=== PATIENT | female | born 1985 | race Caucasian/White ===

== ENCOUNTER → 2020-07-20 14:36 | Outpatient (BNVA) | payer OTHER, SELFPAY | PROVIDERS: PCP Internal Medicine; Visit Provider Surgery | DX: Z76.89 Persons encountering health services in other specified circumstances (principal) ==

== ENCOUNTER → 2020-07-21 08:12 | Outpatient (BNVA) | payer OTHER, SELFPAY | PROVIDERS: PCP Internal Medicine; Referring Provider Internal Medicine; Visit Provider Surgery | DX: E66.01 Morbid (severe) obesity due to excess calories (principal); Z68.41 Body mass index [BMI] 40.0-44.9, adult; Z71.3 Dietary counseling and surveillance | CPT/HCPCS: 99204 ==

== ENCOUNTER → 2020-08-02 12:10 | Outpatient (BNVA) | payer OTHER, SELFPAY | PROVIDERS: Visit Provider Dietitian, Registered | DX: Z76.89 Persons encountering health services in other specified circumstances (principal) ==

== ENCOUNTER 2020-08-04 10:53 | Outpatient (REF) | payer OTHER, SELFPAY ==
--- NOTE | 2020-08-04 12:29 | ECG_ITS ---
Test Reason : SOB PREOP Blood Pressure : / mmHG Vent. Rate : 078 BPM Atrial Rate : 078 BPM P-R Int : 142 ms QRS Dur : 086 ms QT Int : 412 ms P-R-T Axes : 033 032 015 degrees QTc Int : 469 ms Normal sinus rhythm Normal ECG No previous ECGs available Referred By: José Gautam Electronically Signed By:INES MCKNIGHT MD
--- NOTE | 2020-08-04 12:58 | XR_ITS ---
EXAMINATION: XR CHEST CLINICAL INFORMATION: Severe obesity due to excessive calories. COMPARISON: None TECHNIQUE: 2 views of the chest were obtained. FINDINGS: No significant abnormality is noted involving the heart, lungs, mediastinum, bony thorax or soft tissues. XR/XR chest 2V IMPRESSION: Unremarkable chest exam.
[2020-08-04 13:45] LABS: MANUAL DIFF FLAG NO
[2020-08-04 13:49] LABS: Basophils Percent Auto 0.4 % (0-2); Eosinophils Absolute Auto 0.3 X10*3/uL (0.0-0.4); Eosinophils Percent Auto 3.4 % (0-4); Hematocrit 36.9 % (37-47); Hemoglobin 11.6 g/dl (12.0-16.0); Imm Gran Abs Auto 0.02 X10*3/uL (0.00-0.03); Imm Gran Pct Auto 0.2 % (0.0-0.4); Lymphocytes Absolute Auto 1.9 X10*3/uL (1.2-4.9); Lymphocytes Percent Auto 23.1 % (20-40); Mean Corpuscular HGB Conc 31.4 g/dl (31.0-35.0); Mean Corpuscular Hemoglobin 25.1 pg (27.0-33.0); Mean Corpuscular Volume 79.7 fL (80-98); Mean Platelet Volume 10.2 fL (9.4-12.3); Monocytes Absolute Auto 0.4 X10*3/uL (0.1-1.2); Neutrophils Absolute Auto 5.7 X10*3/uL (2.0-8.3); Neutrophils Percent Auto 67.9 % (45-73); Platelet Count 361 X10*3/uL (160-400); Red Blood Count 4.63 X10*6/uL (4.20-5.50); Red Cell Distribution Width 14.8 % (11.0-16.0); White Blood Count 8.3 X10*3/uL (4.8-10.8)
[2020-08-04 14:21] LABS: Alanine Aminotransferase 29 U/L (0-31); Albumin Level 4.3 g/dL (3.5-5.0); Alkaline Phosphatase 86 U/L (39-117); Anion Gap 11 (12-20); Aspartate Amino Transferase 21 U/L (5-31); Bilirubin Total 0.4 mg/dL (0.0-1.0); Blood Urea Nitrogen 13 mg/dL (9-16); C Reactive Protein 1.45 mg/dL (< or = 0.50); Calcium 8.6 mg/dL (8.4-10.2); Carbon Dioxide 30 mmol/L (22-29); Chloride 102 mmol/L (96-108); Cholesterol 174 mg/dL; Estimated Glomerular Filt Rate > 60; Glucose Random 78 mg/dL (60-115); HDL Cholesterol 34 mg/dL; LDL Cholesterol Calculated 122 mg/dl; Potassium 3.6 mmol/l (3.3-5.1); Sodium 139 mmol/L (135-145); Total Protein 7.7 g/dL (6.5-8.0); Triglycerides 91 mg/dL
[2020-08-04 14:25] LABS: Estimated Average Glucose 114 mg/dL; Hemoglobin A1c % 5.6 %
[2020-08-04 14:42] LABS: Ferritin 23 ng/mL (10-122)
[2020-08-04 15:01] LABS: Vitamin B12 513 pg/mL (200-900)
[2020-08-05 12:01] LABS: H Pylori Breath Test NOT DETECTED (NOT DETECTED)
[2020-08-07 12:17] LABS: Insulin Level Total 10.1 uIU/mL
[2020-08-07 18:32] LABS: Zinc 92 mcg/dL (60-130)
[2020-08-09 18:56] LABS: Vitamin A 38 mcg/dL (38-98)
[2020-08-10 14:41] LABS: Vitamin B1 10 nmol/L (8-30)
== END 2020-08-04 10:54 | disposition home or self-care (01) ==
LOC: HO.LAB 10:53
PROVIDERS: Absent Provider Surgery; PCP Internal Medicine; Visit Provider Physician Assistant
DX: Z01.818 Encounter for other preprocedural examination (principal); E66.01 Morbid (severe) obesity due to excess calories
CPT/HCPCS: 36415; 71046; 80053; 80061; 82607; 82728; 82746; 83013; 83036; 83525; 84425; 84443; 84590; 84630; 85025; 86140; 93005; 99211

== ENCOUNTER 2020-08-14 09:15 | Outpatient (REF) | payer OTHER, SELFPAY ==
--- NOTE | 2020-08-14 09:18 | US_ITS ---
EXAMINATION: US COMPLETE ABDOMEN WITH LIVER ELASTOGRAPHY CLINICAL INFORMATION: Morbid obesity due to excess calories. COMPARISON: None. TECHNIQUE: Real-time imaging of the abdominal viscera. Noninvasive ultrasound liver fibrosis assessment is performed using Aldo ElastPQ point quantification shear wave elastography (pSWE) with a 5 MHz transducer. Multiple elastography samples are obtained. FINDINGS: PANCREAS: Normal. ABDOMINAL AORTA: The proximal, middle, and distal aortic segments are normal in caliber. INFERIOR VENA CAVA: Visualized portions are normal. LIVER: The liver demonstrates normal size and Contour with increased echogenicity. No focal lesion or intrahepatic biliary duct dilatation. The right lobe measures 15.7 cm in length. The left lobe measures 11.1 cm in length. There is hepatopedal flow of the main portal vein. Shear wave elastography provides a median stiffness of 1.44 m/s (reference: normal median stiffness is 0.81 - 1.22 m/s). The IQR/median stiffness to assess sampling precision is 0.19 (reference: optimal IQR/median stiffness is under 0.3). GALLBLADDER: Normal. The gallbladder is physiologically distended without evidence of stones, sludge, polyps, wall thickening or pericholecystic fluid. COMMON BILE DUCT: Normal in caliber measuring 0.3 cm in diameter. RIGHT KIDNEY: Normal. No hydronephrosis. No renal calculi or focal parenchymal lesions. The kidney measures 11.7 cm in maximum dimension. LEFT KIDNEY: Normal. No hydronephrosis. No renal calculi or focal parenchymal lesions. The kidney measures 12 cm in maximum dimension. SPLEEN: Normal. The spleen measures 10.3 cm in maximum dimension. FREE FLUID: None. US/US abdomen comp w elastography IMPRESSION: 1. Hepatic steatosis. 2. Elastography: Liver elastography measurements are consistent with a moderate risk for clinically significant liver fibrosis (METAVIR Stage F2-F3).
--- NOTE | 2020-08-14 10:02 | FL_ITS ---
EXAMINATION: XR FLUOROSCOPY UPPER GI WITH AIR CLINICAL INFORMATION: Morbid obesity due to excess calories. COMPARISON: None TECHNIQUE: Fluoroscopic assessment of the upper GI tract was performed in various upright and supine/prone obliquities utilizing thin and thick high density barium contrast material and effervescent granules. FINDINGS: The esophagus was normal in course, caliber, and contour. There was normal distensibility with no fixed segment of narrowing. No focal mucosal abnormality was identified. No significant esophageal dysmotility was observed. Contrast passed freely across the gastroesophageal junction into the stomach. No significant hiatal hernia. There was normal distensibility of the stomach with no focal abnormality identified. There was prompt gastric emptying into the duodenum which demonstrated a normal appearance. No gastroesophageal reflux was observed. FLUOROSCOPY TIME: 2.9 minutes DOSE AREA PRODUCT: 48.835 Gy-cm2 (rosales-centimeter squared) FL/FL upper GI series IMPRESSION: Normal upper GI examination.
== END 2020-08-14 09:16 | disposition home or self-care (01) ==
LOC: HO.US 09:15
PROVIDERS: Visit Provider Surgery
DX: Z01.818 Encounter for other preprocedural examination (principal); E66.01 Morbid (severe) obesity due to excess calories; K21.9 Gastro-esophageal reflux disease without esophagitis
CPT/HCPCS: 74240; 76700; 76705; 76981

== ENCOUNTER → 2020-08-30 08:42 | Outpatient (BNVA) | payer OTHER, SELFPAY | PROVIDERS: PCP Internal Medicine; Visit Provider Surgery | DX: Z76.89 Persons encountering health services in other specified circumstances (principal) ==

== ENCOUNTER → 2020-09-13 08:34 | Outpatient (BNVA) | payer OTHER, SELFPAY | PROVIDERS: PCP Family Medicine; Referring Provider Family Medicine; Visit Provider Dietitian, Registered | DX: Z76.89 Persons encountering health services in other specified circumstances (principal) ==

== ENCOUNTER → 2020-10-18 08:10 | Outpatient (BNVA) | payer OTHER, SELFPAY | PROVIDERS: PCP Family Medicine; Visit Provider Surgery ==

== ENCOUNTER → 2020-10-27 10:52 | Outpatient (BNVA) | payer OTHER, SELFPAY | PROVIDERS: PCP Family Medicine; Visit Provider Dietitian, Registered ==

== ENCOUNTER → 2020-11-08 08:29 | Outpatient (BNVA) | payer OTHER, SELFPAY | PROVIDERS: Visit Provider Surgery ==

== ENCOUNTER → 2020-11-15 12:30 | Outpatient (BNVA) | payer OTHER, SELFPAY | PROVIDERS: PCP Internal Medicine; Visit Provider Physician Assistant ==

== ENCOUNTER 2020-11-23 05:53 | Inpatient (IN) | payer OTHER, SELFPAY ==
--- NOTE | 2020-11-15 10:51 | HO.ANESPROP2 ---
Documented by User: Meena Clare 11/22/20 09:13 HPI - Anesthesia Eval Consult details Narrative: 35yo F for Gastrectomy Sleeve No h/o of GA. Pt reports tendency toward nausea. Pt concerned about PONV because vomited after spinal. Pending Labs T&S PMFSH Active Problems Active Problems: All Active Problems (Updated 11/08/20 @ 12:50 by José Gautam MD) BMI 37.0-37.9, adult (Acute) BMI 38.0-38.9,adult (Acute) Obesity (Acute) Anemia (Acute) Pre-op evaluation (Acute) Preprocedural examination (Acute) Anxiety (Acute) Depression (Acute) DJD (degenerative joint disease) (Acute) Asthma (Acute) Hypertension (Acute) Morbid obesity (Acute) Past Medical History Medical History Anemia Anxiety Asthma Depression DJD (degenerative joint disease) History of COVID-19 Hypertension Morbid obesity Obesity Family History Family History Mother No problems noted. Father No problems noted. Brother No problems noted. Brother No problems noted. Brother No problems noted. Sister No problems noted. Family history of problems with anesthesia: No Surgical History Surgical History Hx of section History of Problems with Anesthesia: No Social History Social History Are you a primary medication care manager to a significant other at home: No Do you presently have visiting nurse or other home services: No Alcohol intake: never Smoking Status: Never smoker Second Hand Smoke Exposure: No Use of substances other than those prescribed or required for medical reasons: No Have you been hit, kicked, punched, or otherwise hurt by someone within the past year? If so, by whom?: No [facility] Practices: pentacostal Advance Directives: No Advance Directives Information Provided: No Advance Directives on File: No Recently lost weight without trying: No Narrative Narrative: No recent illness. >4 mets with working. Asthma stable. Meds Allergies Allergy/AdvReac Type Severity Reaction Status Date / Time No Known Allergies Allergy Verified 11/08/20 13:06 Home Medications Medication Instructions Recorded Confirmed Last Taken Type aspirin 81 mg tablet,delayed 81 mg PO DAILY 07/21/20 11/15/20 10/17/20 History release chlorthalidone 25 mg tablet 25 mg PO DAILY 07/21/20 11/15/20 Unknown History cholecalciferol (vitamin D3) 50 50 mcg PO DAILY 07/21/20 11/15/20 11/05/20 History mcg (2,000 unit) capsule fluticasone propionate 110 1 puff INHALATION BID 07/21/20 11/15/20 Unknown History mcg/actuation HFA aerosol inhaler naproxen 375 mg tablet 375 mg PO BID PRN 07/21/20 11/15/20 11/05/20 History nifedipine 90 mg tablet,extended 90 mg PO DAILY 07/21/20 11/15/20 11/23/20 History release Exam Exam Date and Time: November 15, 2020 1051 Pertinent Lab Results Pertinent Lab Results: Laboratory Tests 11/15/20 11/15/20 11/15/20 12:20 12:20 12:20 WBC 6.4 Hgb 12.2 Hct 38.3 Plt Count 343 PT 14.7 H INR 1.2 H APTT 33.5 Sodium 138 Potassium 3.4 Chloride 96 Carbon Dioxide 28 BUN 11 Creatinine 0.82 Estimated GFR > 60 Hemoglobin A1c % Total Insulin Total Bilirubin 0.6 AST 45 H D ALT 48 H Alkaline Phosphatase 63 D C-Reactive Protein 1.10 H Total Protein 8.3 H Albumin 4.5 TSH 0.78 11/15/20 11/15/20 12:20 12:20 WBC Hgb Hct Plt Count PT INR APTT Sodium Potassium Chloride Carbon Dioxide BUN Creatinine Estimated GFR Hemoglobin A1c % 5.3 Total Insulin 5.7 Total Bilirubin AST ALT Alkaline Phosphatase C-Reactive Protein Total Protein Albumin TSH Narrative Narrative: EKG 07/2020 Normal sinus rhythm Normal ECG No previous ECGs available Airway Mallampati Class: II TM Dist: >3cm Neck ROM: Full Loose/Missing/Broken Teeth: No Heart: RRR Lungs: CTAB Assessment and Plan Assessment Anesthesia Assessment: Anesthesia Plan Discussed and PAT Visit Documented by User: Jean Solis 11/23/20 07:45 [facility] Past Medical History Medical History Anemia Anxiety Asthma Depression DJD (degenerative joint disease) History of COVID-19 Hypertension Morbid obesity Obesity Family History Family History Mother No problems noted. Father No problems noted. Brother No problems noted. Brother No problems noted. Brother No problems noted. Sister No problems noted. Surgical History Surgical History Hx of section Social History Social History Are you a primary medication care manager to a significant other at home: No Do you presently have visiting nurse or other home services: No Alcohol intake: never Smoking Status: Never smoker Second Hand Smoke Exposure: No Use of substances other than those prescribed or required for medical reasons: No Have you been hit, kicked, punched, or otherwise hurt by someone within the past year? If so, by whom?: No [facility] Practices: pentacostal Advance Directives: No Advance Directives Information Provided: No Advance Directives on File: No Recently lost weight without trying: No Meds Allergies Allergy/AdvReac Type Severity Reaction Status Date / Time No Known Allergies Allergy Verified 11/08/20 13:06 Home Medications Medication Instructions Recorded Confirmed Last Taken Type aspirin 81 mg tablet,delayed 81 mg PO DAILY 07/21/20 11/15/20 10/17/20 History release chlorthalidone 25 mg tablet 25 mg PO DAILY 07/21/20 11/15/20 Unknown History cholecalciferol (vitamin D3) 50 50 mcg PO DAILY 07/21/20 11/15/20 11/05/20 History mcg (2,000 unit) capsule fluticasone propionate 110 1 puff INHALATION BID 07/21/20 11/15/20 Unknown History mcg/actuation HFA aerosol inhaler naproxen 375 mg tablet 375 mg PO BID PRN 07/21/20 11/15/20 11/05/20 History nifedipine 90 mg tablet,extended 90 mg PO DAILY 07/21/20 11/15/20 11/23/20 History release Exam Airway Mallampati Class: II TM Dist: >3cm Neck ROM: Full Loose/Missing/Broken Teeth: No Heart: rrr+[id number] Lungs: cta b/l Assessment and Plan Assessment Anesthesia Assessment: Anesthesia Plan Discussed, PAT Visit and Chart Reviewed Final Anesthetic Review ASA Class: II Final Preanesthetic Review: No Changes in Pt Med Stat, Meds/Allgs Chart Reviewed, Consent Obtained/Reviewed and Anes Risks/Benef Reviewed Patient Risk: Low Procedure Risk: Low Assessment/Block/Sedation in SS: Assess/Block/Sedation-SS Anesthetic Plan Anesthetic Plan: GA and Agree w/ Assess. and Plan Disposition: Standard PACU
[2020-11-15 12:21] VITALS: BP 144/97; PULSE 99; RESP 20; O2SAT 98; BMI 36.6
[2020-11-15 12:51] LABS: MANUAL DIFF FLAG NO
[2020-11-15 13:05] LABS: Basophils Percent Auto 0.5 % (0-2); Eosinophils Absolute Auto 0.3 X10*3/uL (0.0-0.4); Eosinophils Percent Auto 5.3 % (0-4); Hematocrit 38.3 % (37-47); Hemoglobin 12.2 g/dl (12.0-16.0); Imm Gran Abs Auto 0.02 X10*3/uL (0.00-0.03); Imm Gran Pct Auto 0.3 % (0.0-0.4); Lymphocytes Absolute Auto 1.7 X10*3/uL (1.2-4.9); Lymphocytes Percent Auto 25.6 % (20-40); Mean Corpuscular HGB Conc 31.9 g/dl (31.0-35.0); Mean Corpuscular Hemoglobin 24.4 pg (27.0-33.0); Mean Corpuscular Volume 76.8 fL (80-98); Mean Platelet Volume 10.1 fL (9.4-12.3); Monocytes Absolute Auto 0.4 X10*3/uL (0.1-1.2); Monocytes Percent Auto 6.8 % (2-11); Neutrophils Percent Auto 61.5 % (45-73); Platelet Count 343 X10*3/uL (160-400); Red Blood Count 4.99 X10*6/uL (4.20-5.50); Red Cell Distribution Width 15.2 % (11.0-16.0); White Blood Count 6.4 X10*3/uL (4.8-10.8)
[2020-11-15 13:11] LABS: INTERNATIONAL NORM RATIO 1.2 (0.9-1.1); Prothrombin Time 14.7 SEC (10.8-13.0)
[2020-11-15 13:14] LABS: Partial Thromboplastin Time 33.5 SEC (24.1-38.0)
[2020-11-15 13:42] LABS: Alanine Aminotransferase 48 U/L (0-31); Albumin Level 4.5 g/dL (3.5-5.0); Alkaline Phosphatase 63 U/L (39-117); Anion Gap 17 (12-20); Aspartate Amino Transferase 45 U/L (5-31); Bilirubin Total 0.6 mg/dL (0.0-1.0); Blood Urea Nitrogen 11 mg/dL (9-16); Calcium 9.4 mg/dL (8.4-10.2); Carbon Dioxide 28 mmol/L (22-29); Chloride 96 mmol/L (96-108); Cholesterol 190 mg/dL; Creatinine Clr Calc Pharmacy 107.1; Estimated Glomerular Filt Rate > 60; Glucose Random 70 mg/dL (60-115); HDL Cholesterol 24 mg/dL; LDL Cholesterol Calculated 148 mg/dl; Potassium 3.4 mmol/L (3.3-5.1); Sodium 138 mmol/L (135-145); Total Protein 8.3 g/dL (6.5-8.0); Triglycerides 91 mg/dL
[2020-11-15 14:00] LABS: Estimated Average Glucose 105 mg/dL; Hemoglobin A1c % 5.3 %
[2020-11-15 14:09] LABS: TSH reflex Free T4 0.78 uIU/mL (0.32-4.0)
[2020-11-16 06:31] LABS: Insulin Level Total 5.7 uIU/mL
--- NOTE | 2020-11-22 23:45 | MHC.SHP ---
Pre-Procedural Eval Section A The patient is an INPATIENT: Yes The History & Physical has been completed within 30 days and I have reviewed it.: No Section B Chief Complaint: severe obesity Details of Present Illness: Obesity Relevant Family History (Specify if Yes): No Relevant Social History: None Present Medications: see Short Stay Collaborative assessment Medical History: No relevant PMH History of Previous Operations: No relevant previous surgery Allergies: Allergies Allergy/AdvReac Type Severity Reaction Status Date / Time No Known Allergies Allergy Verified 11/08/20 13:06 Review of Systems Sugical H&P ROS: Negative: Constitution, Cardiovascular, Respiratory, Neurological, Psychiatric, Hem-Onc, Allergic/Immunologic, Gastrointestinal, Genitourinary, Musculoskeletal, Integumentary, Endocrine and Eyes/Ears/Nose/Throat Exam Surgical H&P Exam: Normal: HEENT, Normal: Heart, Normal: Lungs, Normal: Extremities, Normal: Abdomen, Normal: Skin and Normal: Neurological Plan Diagnosis/Plan: Unchanged I have reviewed the history and physical and performed a pertinent physical examination on my patient. No changes have occurred unless specified.
[2020-11-23] VITALS (14 sets, daily range): BP systolic 124–159; BP diastolic 77–95; PULSE 84–108; RESP 14–20; TEMP 35.2–36.7; O2SAT 88–100
[2020-11-23 06:20] LABS: UPreg QC Valid YES; Urine Pregnancy NEGATIVE (NEGATIVE)
[2020-11-23 06:34] LABS: COVID-19 Test Negative (Negative)
[2020-11-23] MEDS: Scopolamine 1.5 MG PATCH.TD.3 TRANSDERMA (06:45)
[2020-11-23] MEDS: Lactated Ringers 1,000 ML 999 ML IVCONT (07:03)
[2020-11-23] MEDS: Lactated Ringers 1,000 ML 100 ML IVCONT (07:04)
--- NOTE | 2020-11-23 07:28 | PC.NURSE ---
dr pearce at bedside going over procedure pt verbalized understanding with interpretor
--- NOTE | 2020-11-23 10:33 | PM.DS ---
DS: Providers Provider Date of Service: 11/24/20 Date of admission: 11/23/20 05:53 Primary care physician: Imelda Angel MD DS: Medications Discharge Medications Home Medications: Home Medications Medication Instructions Recorded Confirmed aspirin 81 mg tablet,delayed 81 mg PO DAILY 07/21/20 11/15/20 release chlorthalidone 25 mg tablet 25 mg PO DAILY 07/21/20 11/15/20 cholecalciferol (vitamin D3) 50 50 mcg PO DAILY 07/21/20 11/15/20 mcg (2,000 unit) capsule fluticasone propionate 110 1 puff INHALATION BID 07/21/20 11/15/20 mcg/actuation HFA aerosol inhaler naproxen 375 mg tablet 375 mg PO BID PRN 07/21/20 11/15/20 nifedipine 90 mg tablet,extended 90 mg PO DAILY 07/21/20 11/15/20 release Previous Rx's Medication Instructions Recorded iron,carbonyl 65 mg-vitamin C 125 1 tab PO DAILY #30 tab 08/11/20 mg tablet,delayed release ondansetron HCl 4 mg tablet 4 mg PO DAILY #14 tab 11/08/20 pantoprazole 40 mg tablet,delayed 40 mg PO DAILY #30 tab 11/08/20 release polyethylene glycol 3350 17 gram 17 g PO DAILY #14 ea 11/08/20 oral powder packet sucralfate 100 mg/mL oral 10 ml PO BID #420 ml 11/08/20 suspension DS: Summary Time Spent with Patient Time attestation: ADMITTING DIAGNOSIS: morbid obesity, DISCHARGE DIAGNOSIS: same, s/p laparoscopic sleeve gastrectomy, hiatal hernia, HTN, astham, anxiety, depression, DJD PAST SURGICAL HISTORY: section PROCEDURE: upper endoscopy, laparoscopic sleeve gastrectomy and repair of hiatal hernia DISCHARGE SUMMARY: History of Present Illness: The patient is a 35 year-old woman with a BMI of 40.8 kg/m2 and associated co-morbidities as described above. The patient had extensive work-up,lost 28.2 lbs preoperatively and was electively scheduled for laparoscopic, possible open sleeve gastrectomy and gastropexy. Risks and complications of the surgery were discussed with the patient in advance, particularly the possibility of , pulmonary embolism, anastomotic leak, bleeding, bowel injury, GERD, cardiac, renal or pulmonary complications. The patient understood all the risks and was in agreement with the surgical plan. Hospital Course: The patient underwent an uneventful laparoscopic sleeve gastrectomy with gastropexy and repair of hiatal hernia on the day of admission. Postoperatively, the patient was transferred to the surgical floor. The patient was on IV Acetaminophen and IV dilaudid for pain control. Patient was started on bariatric phase 1 diet POD #0. On postoperative day one, the patient was feeling well without nausea, vomiting, fevers, or tachycardia. The patient had some mild incisional pain. The abdomen was soft. On the morning of postoperative day one, the patient was continued on 1 ounce of water or ice every half hour. During the first day, the patient did fairly well, having some incisional pain, but able to ambulate adequately and to tolerate liquids well. Since the patient is doing well, we decided that the patient was ready to be discharged. The patient was given instructions to follow-up with me next week and to call my office for any fever over 101, persistent abdominal pain, nausea, vomiting, GERD, symptoms of DVT such as calf tenderness, or leg swelling, or pulmonary embolism such as chest pain or shortness of breath. The patient was also instructed to drink 40-60 ounces of liquids per day using the 1-ounce cups. The patient was given prescription for Tylenol for pain, Zofran prn for nausea, and pantoprazole and carafate. The patient was encouraged to ambulate and use the incentive spirometer. The patient was allowed to shower, but no baths, and encouraged to stay active at home. All of these instructions were given to the patient personally. All questions were answered and the patient understood all instructions, the instructions were also given to the patient in print. Total time spent providing and/or coordinating discharge services: Discharge coordination time: Less than 30 minutes Physical Exam Vital Signs: Vital Signs: Last Vital Signs Temp 97.1 F 11/23/20 10:25 Pulse 89 11/23/20 10:30 Resp 18 11/23/20 10:30 BP 144/94 H 11/23/20 10:30 Pulse Ox 100 11/23/20 10:30 Body Mass Index 36.6 DS: Data Data Completed and Pending Pending studies at discharge: Pending at discharge 11/23/20 08:44 Surgical [PTH] Routine Labs on day of discharge: Laboratory Results - last 24 hr 11/23/20 11/23/20 11/23/20 06:10 06:10 06:24 Urine Test NEGATIVE COVID-19 ([place]) Negative COVID-19 Clin Com See Note Blood Type A Positive Antibody Screen NEGATIVE Discharge Plan Discharge Anticipated Discharge Date/Time: 11/24/20 11:31 Patient Disposition: Home, Self-Care Referrals: Imelda Angel MD [Primary Care Provider] - Discharge Medications: Continued nifedipine 90 mg tablet extended release 90 mg PO DAILY RF: 0 Flovent HFA 110 mcg/actuation HFA aerosol inhaler 1 puff inhalation BID RF: 0 pantoprazole 40 mg tablet,delayed release (DR/EC) 40 mg PO DAILY Qty: 30 RF: 2 sucralfate 100 mg/mL suspension 10 ml PO BID Qty: 420 RF: 2 ondansetron HCl [Zofran] 4 mg tablet 4 mg PO DAILY Qty: 14 RF: 0 Held chlorthalidone 25 mg tablet 25 mg PO DAILY RF: 0 Hold Instructions: Discuss with Dr Gautam whether to restart. Discontinued aspirin 81 mg tablet,delayed release (DR/EC) 81 mg PO DAILY RF: 0 naproxen 375 mg tablet 375 mg PO BID PRN (Reason: Pain) RF: 0 cholecalciferol (vitamin D3) 50 mcg (2,000 unit) capsule 50 mcg PO DAILY RF: 0 Vitron-C 65 mg iron- 125 mg tablet,delayed release (DR/EC) 1 tab PO DAILY Qty: 30 RF: 2 polyethylene glycol 3350 [Miralax] 17 gram powder in packet 17 g PO DAILY Qty: 14 RF: 0 Discharge Orders: Discharge Order (Routine); Ordered 11/24/20 Ordered By: José Gautam Diet: other Activity on Discharge: No heavy lifting Stand Alone Forms: Patient Portal Discharge page Activity Restrictions/Additional Instructions: No tub baths, sex or returning to work until discussed at first post op appointment. No exercise, alcohol, tobacco or illegal drug use. Continue to use incentive spirometer hourly while awake. Walk in home for 5- 10 minutes every 2 hours during the first week. Continue phase 1 diet today and start phase 2 diet tomorrow morning. Follow all instructions in the bariatric handbook and call with any questions. Care Plan Goals: weight loss Health Concerns: morbid obesity Plan of Treatment: see discharge instructions Discharge Date/Time: 11/24/20 13:26
--- NOTE | 2020-11-23 10:52 | PC.NURSE ---
o2 off when patient woke and oral airway out. shortly after patients respirations sonorous and sao2 88-90%. O2 3lt n/c applied with ETCO2. sao2 100% ETCO 49.
[2020-11-23 11:29] LABS: Hematocrit 36.5 % (37-47); Hemoglobin 11.7 g/dl (12.0-16.0)
[2020-11-23 11:57] LABS: Blood Urea Nitrogen 7 mg/dL (9-16); Calcium 8.8 mg/dL (8.4-10.2); Creatinine Clr Calc Pharmacy 111.2; Estimated Glomerular Filt Rate > 60; Glucose Random 137 mg/dL (60-115)
[2020-11-23 12:09] LABS: Anion Gap 15 (12-20); Carbon Dioxide 26 mmol/L (22-29); Chloride 101 mmol/L (96-108); Potassium 2.8 mmol/L (3.3-5.1); Sodium 139 mmol/L (135-145)
[2020-11-23] MEDS: ondansetron HCL 4 MG/2 ML VIAL IVPUSH ×2 (12:39→19:43)
[2020-11-23] MEDS: Famotidine/PF 20 MG/2 ML VIAL IVPUSH ×2 (12:39→21:53)
[2020-11-23] MEDS: Lactated Ringers 1,000 ML 125 ML IVCONT ×2 (12:39→20:17)
[2020-11-23] MEDS: ceFAZolin Sodium/Dextrose,Iso 2 GM/50 ML PIGGYBACK IV (12:40)
[2020-11-23] MEDS: Potassium Phosphate 30 MMOL in 0.9 % Sodium Chloride 500 ML 85 MMOL IV (13:26)
--- NOTE | 2020-11-23 14:14 | P.BOP_ITS ---
Brief Operative Note Date of Service: 11/23/20 Pre-op diagnosis: Obesity and comorbidities (see below) Post-op diagnosis: same (& diaphragmatic hernia and congenital adhesions) Procedure: INITIAL PATIENT BMI ON PRESENTATION AT OUR OFFICE: 42.3 kg/m2 LAST BMI BEFORE SURGERY: 38.6 kg/m2 COMORBIDITIES: hypertension, asthma, depression, liver steatosis, diaphragmatic hernia, DJD, anxiety The patient participated in an intensive weekly lifestyle intervention and exercise program during which the patient has lost between the initial office visit and the last preoperative visit 38.6 lbs, or 15.95% of initial actual body weight. The patient met the BMI-criteria for bariatric surgery based on the BMI on initial presentation. The patient should not be penalized for achieving such weight loss because it is not sustainable long-term without surgical intervention and it was achieved in preparation for bariatric surgery under my direction and based on my published research ([email or web address] and [email or web address]) that a 10% preoperative weight loss improves long-term weight loss after surgery and reduces perioperative complications. Insurance carriers such as [facility] have endorsed my recommendations and have included in their policies criteria to include a 10% preoperative weight loss requirement. PROCEDURE: Esophago-gastroscopy, laparoscopic repair of incarcerated diaphragmatic hernia, laparoscopic lysis of adhesions, laparoscopic sleeve gastrectomy and laparoscopic gastropexy INDICATIONS: This is a 35 year-old female who was electively scheduled for laparoscopic, possibly open sleeve gastrectomy. The risks and complications of the procedure were discussed with the patient in advance, particularly the possibility of ; pulmonary embolism; staple line leak; bleeding; GERD; cardiac, pulmonary, or renal complications; as well as long-term problems such as insufficient weight loss, vitamin deficiency, strictures, or ulcers. The allyson ent understood all the risks, and was in agreement to proceed with surgery. DESCRIPTION OF PROCEDURE: After informed consent was obtained from the patient, the patient was given preoperative antibiotics, and was transferred to the operating room. After successful induction of general anesthesia, pneumatic compressive devices were placed on both lower extremities. An upper endoscopy was performed next. The oropharynx and esophagus appeared to be within normal limits. There was a diaphragmatic hernia present of moderate size that was not reported at the preoperative upper GI. The stomach was e ntered. Then after all fluid and air were suctioned and the stomach was fully decompressed, the scope was withdrawn and secured in the mid esophagus. The patient was then prepped and draped in the usual sterile manner, and abdominal access was established at the right upper quadrant with the Aris technique. A 12 mm blunt port was inserted, and the abdomen was insufflated with CO2 to a pressure of 15 mmHg. Under direct visualization, additional ports were placed, specifically two 5 mm Versi-step ports to the left upper quadrant, and a 5 mm Versi-Step port to the right upper quadrant. 1% lidocained plan was used to infiltrate all port sites as well as all fascia defects. Following that, the patient was placed in a steep reverse Trendelenburg position. An additional 5 mm port was placed to the right flank for the Mediflex retractor that was used to retract the left lobe of the liver. The gastro-esophageal fat pad was opened with the ultrasonic device (Thunderbeat, Olympus) and the anterior esophagus and hiatus were exposed. The angle of His was opened with the ultrasonic device the fundus of the stomach from any diaphragmatic and splenic attachments. I then opened the gastrocolic ligament between the transverse colon and the greater curvature of the stomach with the ultrasonic device to enter the lesser sac and facilitate the ligation of the short gastric vessels. I started at a mid-point along the greater curvature and using the Thunderbeat, all short gastric vessels were divided all the way to the angle of His until the left ji was completely dissected at its entirety. I then divided the gastro-colic ligament distally to a distance of about 3-4 cm proximal to the esophagus. There were extensive congenital adhesions between the pancreas and posterior g astric wall. Those were lysed completely with the ultrasonic device. Adhesiolysis took approximately 45 min to complete. There was an obvious significant-sized hiatal hernia. I continued dissecting a long the hiatus toward the left ji and the angle of His. I fully mobilized the fat pad that was incarcerated in the hernia. I then continued by dissecting even further into the posterior retro-esophageal space all the way to the angle of His. I continued to mobilize the esophagus into the mediastinum circumferentially. The right ji was completely dissected free. Both vagal nerves were seen and preserved. At that point, I was able to have at least 3 to 5 cm of esophagus into the abdomen. After I completely mobilized the esophagus from both the left and right ji and I had a good mobilization of the esophagus circumferentially, I closed the hernia defect with one interrupted #0 Surgidac suture using the Endo Stitch device, which was placed posterior to the esophagus. The stomach was then divided transversely with two Endo DUY-45 and four DUY-60 articulating purple loads using the StayClassy chiqui and loads. Every effort was made that the gastric sleeve had a tubular shape and an even caliber throughout. Once the sleeve resection was completed, the staple line of the gastric sleeve was reinforced with Hemoclips. The resected stomach was retrieved without difficulty from the Aris port. A gastropexy was then performed in order to prevent postoperative GERD and partial gastric volvulus. Several interrupted 2.0 Surgidac sutures were placed between the sleeve's staple line and the previously divided greater omentum and gastro-colic ligament using the Endo-Stitch device. An upper endoscopy was performed. There was no narrowing at the GE junction. The scope was easily advanced all the way to the pylorus which was clearly visualized. There was no narrowing anywhere and the sleeve's caliber was even throughout. The sleeve's staple line was inspected and there was no evidence of ischemia, bleeding or dehiscence. At that point the gastroscope was withdrawn from the patient?s mouth while we were decompressing the bowel and the stomach from any remaining air. I looked into the lesser sac to see how the sleeve was situating and it was situating well. There was no bleeding from the staple line, spleen, or short gastric vessels. The Mediflex retractor was removed, and the undersurface of the liver was inspected and there was no bleeding. The patient was placed in supine position. I closed the fascial defect of the 12 mm port site with a figure of eight #1 Polysorb suture. Then 100 cc 0.25 % Marcaine plain with 10 mg of Dexamethasone were used to infiltrate the fascial closure as well as all skin incisions. At this point, the abdomen was deflated, all ports were removed under direct vision, and no bleeding was noted from any of the port sites. The skin incisions were irrigated with saline and were closed with 4-0 absorbable monofilament sutures. Steri-Strips and OpSites were used to cover all incisions. The patient was extubated and was transferred in stable condition to the recovery room for further care. I was present and performed all banegas parts of the procedure. Pendleton was the assistant housekeeping manager. There were no residents to assist with this case. Veto Gautam MD, PhD, FACS Surgeon: José Gautam MD Anesthesia: GETA, local and other (TAP block) News Production Supervisor: Kimberlee Pendleton Estimated blood loss (mL): 50 IV fluids (mL): 3,000 Urine output (mL): 0 (No Quinn to record) Pathology: other (Stomach) Condition: stable Disposition: PACU
[2020-11-23] MEDS: Potassium Chloride ER 20 MEQ TAB.ER.PRT PO ×2 (14:48→19:43)
--- NOTE | 2020-11-23 15:06 | PM.PNGS ---
Subjective Subjective Date of Service: 11/24/20 Interval history: Patient has mild incisional pain. Was able to ambulate and use the incentive spirometer. Physical Exam Vital Signs: Vital Signs: Last Vital Signs Temp 97.4 F 11/23/20 12:10 Pulse 88 11/23/20 12:10 Resp 16 11/23/20 12:10 BP 133/77 11/23/20 12:10 Pulse Ox 98 11/23/20 12:10 Body Mass Index 36.6 GI: Inspection: Yes normal to inspection and Yes incision (clean, dry and intact) Extrem: Right lower extremity: normal to inspection (no calf tenderness) Left lower extremity: normal to inspection (no calf tenderness) Progress Note: A&P Assessment and plan (1) Obesity: Status: Acute (2) BMI 38.0-38.9,adult: Status: Acute (3) Anxiety: Status: Acute (4) Depression: Status: Acute (5) DJD (degenerative joint disease): Status: Acute (6) Asthma: Status: Acute (7) Hypertension: Status: Acute (8) Diaphragmatic hernia: Status: Acute (9) Steatosis, liver: Status: Acute (10) S/P laparoscopic sleeve gastrectomy: Status: Acute Assessment and Plan: 35 year old female was admitted 11/23/2020 with morbid obesity and comorbidities. Problem 1: s/p laparoscopic sleeve gastrectomy, diaphragmatic hernia repair, gastropexy and lysis of adhesions Status: Doing well Plan: Check am labs, If OK, will continue phase 1 bariatric diet and discharge later today. (11) Status post repair of paraesophageal diaphragmatic hernia: Status: Acute Fall Risk Details Current Medications: Current Medications Generic Name Dose Route Start Last Admin Trade Name Freq PRN Reason Stop Dose Admin Famotidine 20 mg 11/23/20 12:06 11/23/20 12:39 Famotidine/Pf 20 Mg/2 Ml Vial IVPUSH 20 mg BID YASMEEN Administration Fluticasone Propionate 1 puff 11/23/20 20:00 Fluticasone Propionate 100 Mcg Blst.W.Dev INHALE RBID YASMEEN Hydromorphone HCl 0.25 mg 11/23/20 12:06 Hydromorphone Hcl 0.5 Mg/0.5 Ml Syringe IVPUSH Q4H PRN Pain, Moderate (Pain Scale 4-6 Lactated Ringer's 1,000 mls @ 125 mls/hr 11/23/20 12:06 11/23/20 12:39 Lr IVCONT 125 mls/hr .Q8H YASMEEN Administration Acetaminophen 1,000 mg in 100 mls @ 16.7 mls/hr 11/23/20 12:06 11/23/20 12:47 Ofirmev IV 11/26/20 11:57 Not Given .Q6H YASMEEN Potassium Phosphate 30 mmol/ 510 mls @ 85 mls/hr 11/23/20 12:48 11/23/20 13:26 Sodium Chloride IV 11/23/20 18:47 85 mls/hr ONCE ONE Administration Metoclopramide HCl 10 mg 11/23/20 12:06 Metoclopramide Hcl 10 Mg/2 Ml Vial IVPUSH Q6H PRN Nausea Nifedipine 90 mg 11/24/20 09:00 Nifedipine Er 90 Mg Tab.Er.24 PO DAILY YASMEEN Ondansetron HCl 4 mg 11/23/20 12:06 11/23/20 12:39 Ondansetron Hcl 4 Mg/2 Ml Vial IVPUSH 4 mg Q8H YASMEEN Administration Potassium Chloride 20 meq 11/23/20 13:05 11/23/20 14:48 Potassium Chloride Er 20 Meq Tab.Er.Prt PO 11/23/20 19:06 20 meq Q6H YASMEEN Administration Sodium Chloride 3 ml 11/23/20 16:00 11/23/20 14:12 0.9 % Sodium Chloride Flush 3 Ml Syringe IVFLUSH Not Given QSHIFT YASMEEN Time Spent With Patient Time: Total time spent is greater than 50% in coordination of care (as documented) at patient's floor/unit and/or counseling patient: Time with patient: less than 15 minutes Procedures Date of Service Date of Service: 11/24/20
--- NOTE | 2020-11-23 16:46 | PC.NURSE ---
pt appears very drowsy , due to drowsiness pt requiring 2 assist to br at 1700 ,pt voiding large amounts . .Pt needing a lot encouragement to drink phase 1 . Pt has only tolerated 1 oz due to sleepiness . Pt able to use incentive spirometer getting to 1000mls. vss
[2020-11-23] MEDS: Fluticasone Propionate 100 MCG BLST.W.DEV 1 PUFF INHALE (20:17)
[2020-11-23] MEDS: 0.9 % Sodium Chloride Flush 3 ML SYRINGE IVFLUSH (21:53)
[2020-11-24 04:00] VITALS: BP 159/94; PULSE 93; RESP 16; TEMP 36.9; O2SAT 98
[2020-11-24] MEDS: Lactated Ringers 1,000 ML 125 ML IVCONT (04:13)
[2020-11-24] MEDS: ondansetron HCL 4 MG/2 ML VIAL IVPUSH (04:22)
[2020-11-24 06:39] LABS: MANUAL DIFF FLAG NO
[2020-11-24 06:49] LABS: Basophils Percent Auto 0.1 % (0-2); Hematocrit 34.5 % (37-47); Imm Gran Abs Auto 0.06 X10*3/uL (0.00-0.03); Imm Gran Pct Auto 0.8 % (0.0-0.4); Lymphocytes Absolute Auto 1.1 X10*3/uL (1.2-4.9); Lymphocytes Percent Auto 13.7 % (20-40); Mean Corpuscular HGB Conc 31.9 g/dl (31.0-35.0); Mean Corpuscular Hemoglobin 24.6 pg (27.0-33.0); Mean Corpuscular Volume 77.2 fL (80-98); Mean Platelet Volume 10.5 fL (9.4-12.3); Monocytes Absolute Auto 0.7 X10*3/uL (0.1-1.2); Monocytes Percent Auto 8.5 % (2-11); Neutrophils Percent Auto 76.9 % (45-73); Platelet Count 286 X10*3/uL (160-400); Red Blood Count 4.47 X10*6/uL (4.20-5.50); Red Cell Distribution Width 15.3 % (11.0-16.0); White Blood Count 7.8 X10*3/uL (4.8-10.8)
[2020-11-24 07:18] VITALS: BP 137/89; PULSE 80; RESP 15; TEMP 36.7; O2SAT 100
[2020-11-24 07:19] LABS: Anion Gap 15 (12-20); Blood Urea Nitrogen 6 mg/dL (9-16); Calcium 8.9 mg/dL (8.4-10.2); Carbon Dioxide 28 mmol/L (22-29); Chloride 101 mmol/L (96-108); Creatinine Clr Calc Pharmacy 120.3; Estimated Glomerular Filt Rate > 60; Glucose Random 90 mg/dL (60-115); Potassium 3.5 mmol/L (3.3-5.1); Sodium 140 mmol/L (135-145)
[2020-11-24 07:55] VITALS: O2SAT 100
[2020-11-24] MEDS: Fluticasone Propionate 100 MCG BLST.W.DEV 1 PUFF INHALE (08:17)
[2020-11-24 08:18] VITALS: PULSE 79; O2SAT 99
[2020-11-24] MEDS: Famotidine/PF 20 MG/2 ML VIAL IVPUSH (08:46)
[2020-11-24] MEDS: NIFEdipine ER 90 MG TAB.ER.24 PO (08:49)
--- NOTE | 2020-11-24 10:09 | MHC.CM.PN ---
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 SHE HAS NO VNA , NO DME SERVICES IN THE HOME , DISCHARGE PLAN HOME NO SERVICES PCP DR ARIELLA CAI PATIENT TO CALL FOR [facility] DISCHARGE FOLLOW UP [facility] SURGICAL FLLOW UP PER DISCHARGE INSTRUCTIONS TRANSPORTATION HER HUISBAND SELF RESUMPTION OF HER MENTAL HEALTH COUNSELING
[2020-11-24 11:16] VITALS: BP 127/75; PULSE 87; RESP 16; TEMP 36.4; O2SAT 99
--- NOTE | 2020-11-24 13:24 | HO.POSTANES ---
Post Anesthesia Evaluation Post Anesthesia Evaluation Vital Signs: Vital Signs Temp Pulse Resp BP Pulse Ox 11/24/20 11:16 97.5 F 87 16 127/75 99 11/24/20 08:18 79 11/24/20 07:55 100 11/24/20 07:18 98.0 F 80 15 137/89 100 11/24/20 04:00 98.4 F 93 16 159/94 H 98 Anesthesia: General Endotracheal-GETA Mental Status: Awake Pain Control: Satisfactory Nausea/Vomiting: None Hydration: Adequate Anesthesia-Related Issues: No Anes. Related Issues
== END 2020-11-24 13:26 | disposition home or self-care (01) | DRG 403 ==
LOC: HO.SSSA 10:33 → HO.S3 10:58
PROVIDERS: Nurse Practitioner; Physician Assistant; Admitting Provider Surgery; PCP Internal Medicine; Visit Provider Surgery
PROC: 0DB64Z3 Excision of Stomach, Percutaneous Endoscopic Approach, Vertical (ICD-10-PCS; CPT 43845; principal; 2020-11-23 07:30)
DX: E66.01 Morbid (severe) obesity due to excess calories (principal); K76.0 Fatty (change of) liver, not elsewhere classified; K44.0 Diaphragmatic hernia with obstruction, without gangrene; F32.9 Major depressive disorder, single episode, unspecified; I10 Essential (primary) hypertension; Z86.16 Personal history of COVID-19; M19.90 Unspecified osteoarthritis, unspecified site; Z68.38 Body mass index [BMI] 38.0-38.9, adult; J45.909 Unspecified asthma, uncomplicated; F41.9 Anxiety disorder, unspecified; K66.0 Peritoneal adhesions (postprocedural) (postinfection); Z79.51 Long term (current) use of inhaled steroids; Z79.899 Other long term (current) drug therapy
CPT/HCPCS: 36415; 80048; 80053; 80061; 81025; 83036; 83525; 84443; 85014; 85018; 85025; 85610; 85730; 86140; 86850; 86900; 86901; 87635; 88307; 88342; 94640; 99024; A4649; J0131; J0690; J1100; J1170; J2250; J2405; J3010

== ENCOUNTER → 2020-11-29 07:50 | Outpatient (BNVA) | payer OTHER, SELFPAY | PROVIDERS: PCP Internal Medicine; Visit Provider Surgery | DX: K59.00 Constipation, unspecified (principal); E66.9 Obesity, unspecified; Z68.33 Body mass index [BMI] 33.0-33.9, adult | CPT/HCPCS: 99212 ==

== ENCOUNTER → 2020-12-22 08:06 | Outpatient (BNVA) | payer OTHER, SELFPAY | PROVIDERS: PCP Internal Medicine; Visit Provider Surgery | DX: E66.9 Obesity, unspecified (principal) | CPT/HCPCS: 99212 ==

== ENCOUNTER → 2020-12-27 08:30 | Outpatient (BNVA) | payer OTHER, SELFPAY | PROVIDERS: PCP Internal Medicine; Visit Provider Surgery | DX: Z13.89 Encounter for screening for other disorder (principal) | CPT/HCPCS: 99212 ==

== ENCOUNTER → 2021-02-14 09:59 | Outpatient (BNVA) | payer OTHER, SELFPAY | PROVIDERS: PCP Internal Medicine; Visit Provider Physician Assistant ==